=== PATIENT | male | born 1990 | race Caucasian/White ===

== ENCOUNTER 2016-05-21 06:16 | Inpatient (IN) | payer OTHER ==
[~2016-05-21] VITALS: Ht 188 cm; Wt 74.5 kg
[2016-05-21 06:20] VITALS: BP 145/74; PULSE 97; RESP 20; TEMP 97.9; O2SAT 99
[2016-05-21] MEDS ORDERED: KETOROLAC TROMETHAMINE 60 MG/2 ML VIAL IM ONE (07:00)
[2016-05-21] MEDS ORDERED: MORPHINE 4 MG/ML INJ. SYRINGE IM ONE (07:15)
[2016-05-21] MEDS ORDERED: NACL 0.9% 1,000 ML IV ONE ×3 (08:27→13:45)
[2016-05-21] MEDS ORDERED: MORPHINE 2 MG/ML INJ. SYRINGE IVP ONE ×2 (08:30→10:00)
[2016-05-21] MEDS ORDERED: ONDANSETRON HCL 4 MG/2 ML VIAL IVP ONE (08:30)
[2016-05-21 08:58] LABS: BASOPHILS % (AUTO) 0.4 % (0.0-2.0); EOSINOPHILS # (AUTO) 0.1 K/uL (0.0-0.4); EOSINOPHILS % (AUTO) 1.7 % (0.0-4.0); HEMATOCRIT 45.1 % (36-54); HEMOGLOBIN 14.7 g/dL (14.0-18.0); LYMPHOCYTES # (AUTO) 1.2 K/uL (1.0-5.5); LYMPHOCYTES % (AUTO) 14.7 % (20.5-51.5); MEAN CORPUSCULAR HEMOGLOBIN 28 pg (27-31); MEAN CORPUSCULAR HGB CONC 33 % (32-36); MEAN CORPUSCULAR VOLUME 86 fL (79.0-98.0); MONOCYTES # (AUTO) 0.6 K/uL (0.0-1.0); MONOCYTES % (AUTO) 7.6 % (1.7-9.3); NEUTROPHILS # (AUTO) 6.3 K/uL (1.8-7.7); NEUTROPHILS % (AUTO) 75.6 % (40.0-70.0); PLATELET COUNT (AUTO) 234 K/uL (130-430); RED BLOOD CELL COUNT(AUTO) 5.24 MIL/uL (4.2-6.2); RED CELL DISTRIBUTION WIDTH 12.9 % (9.0-15.0); WHITE BLOOD COUNT (AUTO) 8.2 K/uL (4.8-10.8)
[2016-05-21 09:09] LABS: CALCIUM 8.9 mg/dL (8.4-11.0); CREATININE 0.8 mg/dL (0.55-1.30); POTASSIUM 4.3 mmol/L (3.5-5.1)
[2016-05-21 09:13] LABS: ALBUMIN 4.3 g/dL (3.4-4.8); PROTHROMBIN TIME 10.6 SECS (9.5-12.5); TOTAL BILIRUBIN 0.4 mg/dL (0.0-1.0); TOTAL PROTEIN, SERUM 7.6 g/dL (6.4-8.3)
[2016-05-21 10:16] LABS: BILIRUBIN,URINE NEGATIVE (NEGATIVE); BLOOD, URINE NEGATIVE (NEGATIVE); CLARITY/URINE CLEAR (CLEAR); COLOR,URINE YELLOW (YELLOW); GLUCOSE,URINE NEGATIVE (NEGATIVE); KETONES,URINE NEGATIVE (NEGATIVE); LEUKOCYTE ESTERASE ,URINE NEGATIVE (NEGATIVE); NITRITE, URINE NEGATIVE (NEGATIVE); PH,URINE 8.5 (5.0-8.0); PROTEIN URINE NEGATIVE (NEGATIVE); UROBILINOGEN,URINE 0.2 (0.2-1.0)
[2016-05-21] MEDS ORDERED: SER100 PO (10:27)
[2016-05-21] MEDS ORDERED: adderall PO (10:29)
[2016-05-21 10:30] VITALS: BP 136/78; PULSE 70; RESP 18; TEMP 98.6; O2SAT 100
[2016-05-21] MEDS ORDERED: FLU VACC QS 2016-17(36MOS+)/PF 0.5 ML/SYR SYRINGE I.M. PRN (10:45)
[2016-05-21] MEDS ORDERED: HYDROmorphone 1 MG INJ. 1 MG/ML AMPUL IVP PRN ×2 (11:30→13:45)
[2016-05-21] MEDS ORDERED: HYDROmorphone 2 MG/ML VIAL IVP PRN (13:45)
[2016-05-21] MEDS ORDERED: ONDANSETRON HCL 4 MG/2 ML VIAL IVP PRN (13:45)
[2016-05-21] MEDS ORDERED: ACETAMINOPHEN 325 MG TABLET PO PRN (13:45)
[2016-05-21 14:04] LABS: CHOLESTEROL 142 mg/dL (<200); HDL CHOLESTEROL 52 mg/dL (>45); LDL CHOLESTEROL 76 mg/dL (<100); TRIGLYCERIDES 41 mg/dL (30-150)
[2016-05-21 16:00] VITALS: BP 129/67; PULSE 59; RESP 16; TEMP 97.6; O2SAT 98
[2016-05-21] MEDS: D5NS 1,000 ML IV SCH ×2 (16:19→22:34)
[2016-05-21 19:30] VITALS: BP 123/76; PULSE 67; RESP 20; TEMP 97.5; O2SAT 96
[2016-05-21] MEDS ORDERED: TEMAZEPAM 15 MG CAPSULE PO PRN (21:00)
[2016-05-21] MEDS ORDERED: ADDERALL 20 MG PO SCH (21:00)
[2016-05-21] MEDS: ADDERALL 20 MG TAB PO SCH ×2 (21:00→22:31)
[2016-05-21] MEDS: QUEtiapine FUMARATE 100 MG TABLET PO SCH (22:31)
[2016-05-22 01:17] VITALS: BP 132/67; PULSE 69; RESP 16; TEMP 97; O2SAT 98
[2016-05-22 05:07] VITALS: BP 120/57; PULSE 60; RESP 16; TEMP 97.4; O2SAT 96
[2016-05-22 06:47] LABS: BASOPHILS % (AUTO) 0.9 % (0.0-2.0); EOSINOPHILS # (AUTO) 0.2 K/uL (0.0-0.4); EOSINOPHILS % (AUTO) 4.1 % (0.0-4.0); HEMATOCRIT 40.9 % (36-54); HEMOGLOBIN 13.8 g/dL (14.0-18.0); LYMPHOCYTES # (AUTO) 1.6 K/uL (1.0-5.5); LYMPHOCYTES % (AUTO) 38.6 % (20.5-51.5); MEAN CORPUSCULAR HEMOGLOBIN 29 pg (27-31); MEAN CORPUSCULAR HGB CONC 34 % (32-36); MEAN CORPUSCULAR VOLUME 86 fL (79.0-98.0); MONOCYTES # (AUTO) 0.4 K/uL (0.0-1.0); MONOCYTES % (AUTO) 9.5 % (1.7-9.3); NEUTROPHILS % (AUTO) 46.9 % (40.0-70.0); PLATELET COUNT (AUTO) 206 K/uL (130-430); RED BLOOD CELL COUNT(AUTO) 4.77 MIL/uL (4.2-6.2); RED CELL DISTRIBUTION WIDTH 13.4 % (9.0-15.0); WHITE BLOOD COUNT (AUTO) 4.2 K/uL (4.8-10.8)
[2016-05-22 07:02] LABS: CALCIUM 8.7 mg/dL (8.4-11.0); CREATININE 0.64 mg/dL (0.55-1.30); POTASSIUM 3.8 mmol/L (3.5-5.1); TOTAL BILIRUBIN 0.3 mg/dL (0.0-1.0)
[2016-05-22 07:03] LABS: ALBUMIN 3.7 g/dL (3.4-4.8); TOTAL PROTEIN, SERUM 6.9 g/dL (6.4-8.3)
[2016-05-22] MEDS: ADDERALL 20 MG TAB PO SCH ×2 (09:00→21:00)
[2016-05-22 09:32] VITALS: BP 126/64; PULSE 72; RESP 18; TEMP 98.2; O2SAT 97
[2016-05-22 15:46] VITALS: BP 138/67; PULSE 73; RESP 19; TEMP 99.1; O2SAT 100
[2016-05-22 19:37] VITALS: BP 130/64; PULSE 78; RESP 20; TEMP 98.8; O2SAT 98
[2016-05-22 20:31] VITALS: BP 133/81; PULSE 60; RESP 16; TEMP 98.1; O2SAT 98
[2016-05-22] MEDS: QUEtiapine FUMARATE 100 MG TABLET PO SCH (21:18)
[2016-05-23 01:03] VITALS: BP 127/56; PULSE 62; RESP 16; TEMP 96.7; O2SAT 97
[2016-05-23 05:43] VITALS: BP 117/64; PULSE 61; RESP 16; TEMP 97; O2SAT 93
[2016-05-23] MEDS: ADDERALL 20 MG TAB PO SCH (09:40)
[2016-05-23 09:45] VITALS: BP 138/86; PULSE 79; RESP 20; TEMP 98.4; O2SAT 98
[2016-05-23 12:09] VITALS: BP 135/73; PULSE 72; RESP 17; TEMP 97.9; O2SAT 99
[2016-05-23 12:15] VITALS: BP 135/73; PULSE 72; RESP 18; TEMP 97.9; O2SAT 99
== END 2016-05-23 12:45 | disposition home or self-care (01) | DRG 440 ==
LOC: SED 06:16 → SMU 10:03
PROVIDERS: ADMIT Internal Medicine Hospice and Palliative Medicine; ATTEND Internal Medicine Hospice and Palliative Medicine
DX: K85.90 Acute pancreatitis without necrosis or infection, unspecified (principal); F12.90 Cannabis use, unspecified, uncomplicated; F90.9 Attention-deficit hyperactivity disorder, unspecified type; K21.9 Gastro-esophageal reflux disease without esophagitis; F41.9 Anxiety disorder, unspecified; F17.210 Nicotine dependence, cigarettes, uncomplicated; F98.8 Other specified behavioral and emotional disorders with onset usually occurring in childhood and adolescence
CPT/HCPCS: 36415; 76700-TC; 80053; 80061; 81003; 82150-TC; 82787; 83690-TC; 85025; 85610-TC; 85730-TC; 86038; 96361; 96372; 96374; 96375; 96376; 99285; J1170; J1885; J2270; J2405; J7030; J7042; Q2037

== ENCOUNTER 2016-11-02 11:09 | Emergency (ER) | payer OTHER ==
[~2016-11-02] VITALS: Ht 188 cm; Wt 72.6 kg
[~2016-11-02 11:09] MED LIST: SER100 PO; adderall PO
[2016-11-02 11:14] VITALS: BP_SYST 151
--- NOTE | 2016-11-02 11:19 | NUR ---
Patient to ER bed 3 to gown for evaluation. Side rails up. Report given to Helen MCKINNON.
--- NOTE | 2016-11-02 11:20 | NUR ---
ER at bedside examining patient.
[2016-11-02] MEDS ORDERED: NACL 0.9% 1,000 ML IV ONE (11:27)
[2016-11-02] MEDS ORDERED: KETOROLAC TROMETHAMINE 30 MG VIAL IVP ONE (11:30)
--- NOTE | 2016-11-02 11:30 | NUR ---
# 20 gauge angiocath placed to LAC. Use of asceptic technique. Opsite placed over site. Blood return noted. Blood for lab drawn from site. Flushed with 10 cc of normal saline. No evidence of infiltration noted. Patient tolerated well.
[2016-11-02 11:39] LABS: BASOPHILS # (AUTO) 0.1 K/uL (0.0-0.2); BASOPHILS % (AUTO) 1.5 % (0.0-2.0); EOSINOPHILS # (AUTO) 0.3 K/uL (0.0-0.4); EOSINOPHILS % (AUTO) 3.9 % (0.0-4.0); HEMATOCRIT 48.9 % (36-54); HEMOGLOBIN 16.1 g/dL (14.0-18.0); LYMPHOCYTES % (AUTO) 31.4 % (20.5-51.5); MEAN CORPUSCULAR HEMOGLOBIN 28 pg (27-31); MEAN CORPUSCULAR HGB CONC 33 % (32-36); MEAN CORPUSCULAR VOLUME 87 fL (79.0-98.0); MONOCYTES # (AUTO) 0.5 K/uL (0.0-1.0); MONOCYTES % (AUTO) 7.1 % (1.7-9.3); NEUTROPHILS # (AUTO) 3.5 K/uL (1.8-7.7); NEUTROPHILS % (AUTO) 56.1 % (40.0-70.0); PLATELET COUNT (AUTO) 255 K/uL (130-430); RED BLOOD CELL COUNT(AUTO) 5.66 MIL/uL (4.2-6.2); RED CELL DISTRIBUTION WIDTH 12.8 % (9.0-15.0); WHITE BLOOD COUNT (AUTO) 6.4 K/uL (4.8-10.8)
--- NOTE | 2016-11-02 11:45 | NUR ---
Pt on stable condition, resting at this time, family at bedside
[2016-11-02 11:51] LABS: BARBITURATE, URINE NEGATIVE (NEG <=200); BENZODIAZEPINE, URINE NEGATIVE (NEG <=150); CANNABINOID, URINE POSITIVE (NEG <=50); COCAINE, URINE NEGATIVE (NEG <=150); METHAMPHETAMINES SCREEN,URINE NEGATIVE (NEG <=500); OPIATE, URINE NEGATIVE (NEG <=100); PHENCYCLIDINE SCREEN,URINE NEGATIVE (NEG <=25); UR TRICYCLIC ANTIDEPRESSANTS POSITIVE (NEG <=300); URINE AMPHETAMINE POSITIVE (NEG <=500); URINE METHADONE NEGATIVE (NEG <=200); URINE OXYCODONE SCREEN NEGATIVE (NEG <=100); URINE PROPOXYPHENE SCREEN NEGATIVE (NEG <=300)
[2016-11-02 11:53] LABS: CALCIUM 8.9 mg/dL (8.4-11.0); CREATININE 0.77 mg/dL (0.55-1.30); POTASSIUM 4.3 mmol/L (3.5-5.1)
[2016-11-02 11:57] LABS: ALBUMIN 4.4 g/dL (3.4-4.8); TOTAL BILIRUBIN 0.3 mg/dL (0.0-1.0); TOTAL PROTEIN, SERUM 7.7 g/dL (6.4-8.3)
[2016-11-02] MEDS ORDERED: DIPHENHYDRAMINE INJ 50 MG/ML VIAL IVP ONE (12:45)
[2016-11-02] MEDS ORDERED: HALOPERIDOL LACTATE 5 MG/ML VIAL IVP ONE (12:45)
--- NOTE | 2016-11-02 12:48 | NUR ---
Placed on director cardiac, blood pressure machine and pulse oximeter. To gown for exam. Side rails up.
--- NOTE | 2016-11-02 13:11 | NUR ---
Dr Osborn at bedside talking to the patient.
[2016-11-02] MEDS ORDERED: PROCHLORPERAZINE EDISYLATE 10 MG/2 ML VIAL IVP ONE (13:15)
[2016-11-02] MEDS ORDERED: fentaNYL CITRATE/PF 100 MCG/2 ML AMP IVP ONE (13:15)
--- NOTE | 2016-11-02 13:48 | NUR ---
Patient given written and verbal discharge instructions and verbalizes understanding. ER MD discussed with patient the results and treatment provided. Patient in stable condition. ID arm band removed. IV catheter removed intact and dressing applied, no active bleeding. Rx of zofran and tramadol given. Patient educated on pain management and to follow up with PMD. Pain Scale 0/10 . Opportunity for questions provided and answered. pt refused to use wheelchair,insisit to walk with his friend to the car
[2016-11-02 13:51] VITALS: BP_SYST 131
== END 2016-11-02 13:48 | disposition home or self-care (01) ==
LOC: SED 11:09
DX: R10.13 Epigastric pain (principal); K21.9 Gastro-esophageal reflux disease without esophagitis; Z79.899 Other long term (current) drug therapy
CPT/HCPCS: 36415; 80053; 80307; 83690; 85025; 96361; 96374; 96375; 99285; J0780; J1200; J1630; J1885; J3010

== ENCOUNTER 2017-07-22 09:41 | Emergency (ER) | payer OTHER ==
[~2017-07-22] VITALS: Ht 188 cm; Wt 79.4 kg
[2017-07-22 10:08] VITALS: BP_SYST 145
[2017-07-22 11:44] LABS: BASOPHILS # (AUTO) 0.1 K/uL (0.0-0.2); BASOPHILS % (AUTO) 1.2 % (0.0-2.0); EOSINOPHILS # (AUTO) 0.1 K/uL (0.0-0.4); EOSINOPHILS % (AUTO) 1.2 % (0.0-4.0); HEMATOCRIT 44.9 % (36-54); HEMOGLOBIN 14.9 g/dL (14.0-18.0); LYMPHOCYTES # (AUTO) 1.9 K/uL (1.0-5.5); LYMPHOCYTES % (AUTO) 22.2 % (20.5-51.5); MEAN CORPUSCULAR HEMOGLOBIN 29 pg (27-31); MEAN CORPUSCULAR HGB CONC 33 % (32-36); MEAN CORPUSCULAR VOLUME 87 fL (79.0-98.0); MONOCYTES # (AUTO) 0.7 K/uL (0.0-1.0); MONOCYTES % (AUTO) 8.7 % (1.7-9.3); NEUTROPHILS # (AUTO) 5.8 K/uL (1.8-7.7); NEUTROPHILS % (AUTO) 66.7 % (40.0-70.0); PLATELET COUNT (AUTO) 286 K/uL (130-430); RED BLOOD CELL COUNT(AUTO) 5.17 MIL/uL (4.2-6.2); RED CELL DISTRIBUTION WIDTH 12.7 % (9.0-15.0); WHITE BLOOD COUNT (AUTO) 8.6 K/uL (4.8-10.8)
[2017-07-22 11:54] LABS: ANION GAP 11 (5-15); CALCIUM 9.7 mg/dL (8.4-11.0); CHLORIDE 102 mmol/L (98-107); CREATININE 0.72 mg/dL (0.55-1.30); GLUCOSE 103 mg/dL (70-99); POTASSIUM 3.5 mmol/L (3.5-5.1); SODIUM SERUM 140 mmol/L (136-145); UREA NITROGEN, BLOOD 14 mg/dL (8-21)
[2017-07-22 11:57] LABS: GFR AFRICAN AMERICAN 171 mL/min (>90)
[2017-07-22 12:00] LABS: ALANINE AMINOTRANSFERASE 21 U/L (12-78); ALBUMIN 4.6 g/dL (3.4-4.8); ASPARTATE AMINOTRANSFERASE 18 U/L (10-37); TOTAL BILIRUBIN 0.8 mg/dL (0.0-1.0)
[2017-07-22 12:01] LABS: ACETAMINOPHEN < 1 ug/mL (1-30); ALCOHOL, BLOOD < 3 mg/dL (<10)
[2017-07-22 14:52] VITALS: BP_SYST 136
== END 2017-07-22 14:52 | disposition home or self-care (01) ==
LOC: EDBD 09:41 → MERGE 09:41 → SED 09:41
DX: M79.641 Pain in right hand (principal); M79.642 Pain in left hand; F41.9 Anxiety disorder, unspecified; R03.0 Elevated blood-pressure reading, without diagnosis of hypertension; Z86.59 Personal history of other mental and behavioral disorders; Y08.89XA Assault by other specified means, initial encounter; Y93.89 Activity, other specified; Y92.89 Other specified places as the place of occurrence of the external cause; Y99.8 Other external cause status
CPT/HCPCS: 36415; 80053; 85025; 93005; 99285; G0480; G0481; G0482

== ENCOUNTER 2017-12-23 14:23 | Emergency (ER) | payer OTHER ==
[~2017-12-23] VITALS: Ht 188 cm; Wt 72.6 kg
[2017-12-23 14:37] VITALS: BP_SYST 141
[2017-12-23] MEDS ORDERED: LIDOCAINE 2%, 20 ML MDV INJ ONE (15:00)
[2017-12-23] MEDS ORDERED: IBUPROFEN 800 MG TABLET PO ONE (15:00)
[2017-12-23] MEDS ORDERED: DIPH-TET-PERTUS Vaccine 0.5 ML VIAL (ADACEL) I.M. ONE (15:00)
[2017-12-23] MEDS ORDERED: LIDOCAINE 1% 10 MG/ML, 20 ML MDV IJ ONE (15:15)
[2017-12-23] MEDS ORDERED: HYDROcodone/ACETAMIN 7.5-325 MG TAB PO ONE (15:15)
[2017-12-23] MEDS ORDERED: LORazepam 2 MG/ML VIAL (FOR ER USE) IM ONE (15:15)
[2017-12-23] MEDS ORDERED: fentaNYL CITRATE/PF 100 MCG/2 ML AMP IM ONE (15:30)
[2017-12-23] MEDS ORDERED: CLINDAMYCIN PHOSPHATE 300 MG/2 ML VIAL IM ONE (16:30)
[2017-12-23 16:58] VITALS: BP_SYST 139
== END 2017-12-23 16:58 | disposition home or self-care (01) ==
LOC: SED 14:23
DX: S56.321A Laceration of extensor or abductor muscles, fascia and tendons of right thumb at forearm level, initial encounter (principal); K21.9 Gastro-esophageal reflux disease without esophagitis; R03.0 Elevated blood-pressure reading, without diagnosis of hypertension; F41.9 Anxiety disorder, unspecified; F90.9 Attention-deficit hyperactivity disorder, unspecified type; W26.8XXA Contact with other sharp object(s), not elsewhere classified, initial encounter; Y93.89 Activity, other specified; Y92.89 Other specified places as the place of occurrence of the external cause; Y99.8 Other external cause status
CPT/HCPCS: 12001; 73140; 90471; 90715; 96372; 99284; J2001; J2060; J3010; J3490

== ENCOUNTER 2018-02-05 13:25 | Inpatient (IN) | payer OTHER ==
[~2018-02-05] VITALS: Ht 193 cm; Wt 74.8 kg
[2018-02-05 13:41] VITALS: BP_SYST 155
[2018-02-05] MEDS ORDERED: MORPHINE 4 MG/ML INJ. SYRINGE IVP ONE (14:00)
[2018-02-05] MEDS ORDERED: ONDANSETRON HCL 4 MG/2 ML VIAL IVP ONE (14:00)
[2018-02-05] MEDS ORDERED: DIPHENHYDRAMINE INJ 50 MG/ML VIAL IVP ONE (14:15)
[2018-02-05] MEDS ORDERED: HALOPERIDOL LACTATE 5 MG/ML VIAL IVP ONE (14:15)
[2018-02-05] MEDS ORDERED: KETOROLAC TROMETHAMINE 30 MG VIAL IVP ONE (14:15)
[2018-02-05 14:32] LABS: BASOPHILS # (AUTO) 0.1 K/uL (0.0-0.2); EOSINOPHILS # (AUTO) 0.1 K/uL (0.0-0.4); EOSINOPHILS % (AUTO) 0.7 % (0.0-4.0); HEMATOCRIT 46.2 % (36-54); LYMPHOCYTES # (AUTO) 1.4 K/uL (1.0-5.5); LYMPHOCYTES % (AUTO) 12.2 % (20.5-51.5); MEAN CORPUSCULAR HEMOGLOBIN 29 pg (27-31); MEAN CORPUSCULAR HGB CONC 33 % (32-36); MEAN CORPUSCULAR VOLUME 88 fL (79.0-98.0); MONOCYTES # (AUTO) 0.6 K/uL (0.0-1.0); MONOCYTES % (AUTO) 5.2 % (1.7-9.3); NEUTROPHILS # (AUTO) 9.2 K/uL (1.8-7.7); NEUTROPHILS % (AUTO) 80.9 % (40.0-70.0); PLATELET COUNT (AUTO) 299 K/uL (130-430); RED BLOOD CELL COUNT(AUTO) 5.25 MIL/uL (4.2-6.2); RED CELL DISTRIBUTION WIDTH 12.8 % (9.0-15.0); WHITE BLOOD COUNT (AUTO) 11.4 K/uL (4.8-10.8)
[2018-02-05 14:59] LABS: CREATININE 1.02 mg/dL (0.55-1.30); POTASSIUM 3.9 mmol/L (3.5-5.1)
[2018-02-05 15:04] LABS: ALBUMIN 4.5 g/dL (3.4-4.8); TOTAL BILIRUBIN 0.5 mg/dL (0.0-1.0)
[2018-02-05 15:11] LABS: BILIRUBIN,URINE NEGATIVE (NEGATIVE); BLOOD, URINE 3+ (NEGATIVE); CLARITY/URINE CLEAR (CLEAR); COLOR,URINE YELLOW (YELLOW); GLUCOSE,URINE NEGATIVE (NEGATIVE); KETONES,URINE NEGATIVE (NEGATIVE); LEUKOCYTE ESTERASE ,URINE NEGATIVE (NEGATIVE); NITRITE, URINE NEGATIVE (NEGATIVE); PROTEIN URINE NEGATIVE (NEGATIVE); UROBILINOGEN,URINE 0.2 (0.2-1.0)
[2018-02-05] MEDS ORDERED: NACL 0.9% 1,000 ML IV ONE ×2 (15:15→15:45)
[2018-02-05 15:30] LABS: BARBITURATE, URINE NEGATIVE (NEG <=200); BENZODIAZEPINE, URINE POSITIVE (NEG <=150); CANNABINOID, URINE POSITIVE (NEG <=50); COCAINE, URINE NEGATIVE (NEG <=150); METHAMPHETAMINES SCREEN,URINE NEGATIVE (NEG <=500); URINE AMPHETAMINE NEGATIVE (NEG <=500); URINE METHADONE NEGATIVE (NEG <=200)
[2018-02-05 15:31] LABS: PHENCYCLIDINE SCREEN,URINE NEGATIVE (NEG <=25)
[2018-02-05 15:32] LABS: OPIATE, URINE POSITIVE (NEG <=100); URINE OXYCODONE SCREEN NEGATIVE (NEG <=100); URINE PROPOXYPHENE SCREEN NEGATIVE (NEG <=300)
[2018-02-05 15:33] LABS: UR TRICYCLIC ANTIDEPRESSANTS NEGATIVE (NEG <=300)
[2018-02-05 15:36] LABS: BACTERIA,URINE FEW /HPF (None Seen); RBC,URINE 20-50 /HPF (0-3)
[2018-02-05 15:37] LABS: MUCUS,URINE 1+ /LPF (None Seen)
[2018-02-05] MEDS ORDERED: NACL 0.9% 500 ML IV ONE (15:45)
[2018-02-05] MEDS ORDERED: cefTRIAXone 1 GM in D5W 50 ML IV ONE (15:45)
[2018-02-05] MEDS ORDERED: cefTRIAXone 1 GM VIAL ONE (15:59)
[2018-02-05] MEDS ORDERED: D-AM10TA2 PO (16:15)
[2018-02-05] MEDS ORDERED: LORA2TAB95 PO (16:15)
[2018-02-05] MEDS ORDERED: SER100 PO (16:15)
[2018-02-05] MEDS ORDERED: TRAZ300T11 PO (16:15)
[2018-02-05] MEDS ORDERED: LORazepam 2 MG/ML VIAL IVP PRN (16:45)
[2018-02-05] MEDS ORDERED: METOCLOPRAMIDE HCL 10 MG TABLET PO PRN (16:45)
[2018-02-05] MEDS ORDERED: HYDROcodone/ACETAMIN 7.5-325 MG TAB PO PRN (16:45)
[2018-02-05] MEDS ORDERED: KETOROLAC TROMETHAMINE 15 MG VIAL IVP PRN (16:45)
[2018-02-05] MEDS ORDERED: traZODone HCL 50 MG TABLET (DESYREL) PO PRN (17:00)
[2018-02-05 17:20] VITALS: BP_SYST 147
[2018-02-05] MEDS: NACL 0.9% 1,000 ML IV SCH (18:12)
[2018-02-05 20:00] VITALS: BP_SYST 130
[2018-02-05] MEDS ORDERED: QUEtiapine FUMARATE 100 MG TABLET PO SCH ×3 (21:00)
[2018-02-05 23:30] VITALS: BP_SYST 123
[2018-02-06] MEDS: NACL 0.9% 1,000 ML IV SCH (03:15)
[2018-02-06 06:15] LABS: HEMATOCRIT 40.4 % (36-54); HEMOGLOBIN 13.5 g/dL (14.0-18.0); MEAN CORPUSCULAR HEMOGLOBIN 30 pg (27-31); MEAN CORPUSCULAR HGB CONC 33 % (32-36); MEAN CORPUSCULAR VOLUME 89 fL (79.0-98.0); PLATELET COUNT (AUTO) 228 K/uL (130-430); RED BLOOD CELL COUNT(AUTO) 4.55 MIL/uL (4.2-6.2); RED CELL DISTRIBUTION WIDTH 12.3 % (9.0-15.0); WHITE BLOOD COUNT (AUTO) 8.1 K/uL (4.8-10.8)
[2018-02-06 06:38] LABS: CALCIUM 8.9 mg/dL (8.4-11.0); CREATININE 0.78 mg/dL (0.55-1.30); POTASSIUM 3.6 mmol/L (3.5-5.1)
[2018-02-06 08:20] VITALS: BP_SYST 144
[2018-02-06] MEDS ORDERED: TAMSULOSIN HCL 0.4 MG CAP PO SCH (09:00)
[2018-02-06] MEDS ORDERED: LACTOBACILLUS RHAMNOSUS GG 1 CAP CAPSULE PO SCH (09:00)
[2018-02-06] MEDS ORDERED: TAMS0.4C96 PO (09:38)
[2018-02-06 09:46] VITALS: BP_SYST 144
[2018-02-06 10:56] LABS: LYMPHOCYTES % (MANUAL) 37 % (20-46)
[2018-02-06 10:57] LABS: BASOPHILS % (MANUAL) 0 % (0-2); EOSINOPHILS % (MANUAL) 1 % (0-7); MONOCYTES % (MANUAL) 10 % (0-11)
[2018-02-06] MEDS ORDERED: cefTRIAXone 1 GM IVPB PREMIX 50 ML IV SCH (16:00)
== END 2018-02-06 10:00 | disposition home or self-care (01) | DRG 871 ==
LOC: SED 13:25 → STU 16:32
PROVIDERS: ADMIT Family Medicine; ATTEND Family Medicine
DX: A41.9 Sepsis, unspecified organism (principal); K85.90 Acute pancreatitis without necrosis or infection, unspecified; N13.6 Pyonephrosis; K21.9 Gastro-esophageal reflux disease without esophagitis; F90.9 Attention-deficit hyperactivity disorder, unspecified type; F41.9 Anxiety disorder, unspecified; G47.00 Insomnia, unspecified; R11.10 Vomiting, unspecified; F12.988 Cannabis use, unspecified with other cannabis-induced disorder; Z79.899 Other long term (current) drug therapy
CPT/HCPCS: 36415; 80048; 80053; 80307; 81000-TC; 83605; 83690-TC; 83735-TC; 84100-TC; 85007; 85025; 85027; 87040-TC; 90656; 96361; 96365; 96375; 99285; J0696; J1200; J1630; J1885; J2060; J2270; J2405; J7030

== ENCOUNTER 2018-02-07 18:39 | Emergency (ER) | payer OTHER ==
[~2018-02-07] VITALS: Ht 188 cm; Wt 74.8 kg
[~2018-02-07 18:39] MED LIST changes: +D-AM10TA2 PO; +LORA2TAB95 PO; +TAMS0.4C96 PO; +TRAZ300T11 PO
[2018-02-07 18:50] VITALS: BP_SYST 150
[2018-02-07] MEDS ORDERED: ONDANSETRON HCL 4 MG/2 ML VIAL ONE (19:39)
[2018-02-07] MEDS ORDERED: KETOROLAC TROMETHAMINE 30 MG VIAL ONE (19:39)
[2018-02-07] MEDS ORDERED: KETOROLAC TROMETHAMINE 30 MG VIAL IVP ONE (19:45)
[2018-02-07] MEDS ORDERED: ONDANSETRON HCL 4 MG/2 ML VIAL IVP ONE (19:45)
[2018-02-07 19:54] LABS: BASOPHILS # (AUTO) 0.2 K/uL (0.0-0.2); BASOPHILS % (AUTO) 1.9 % (0.0-2.0); EOSINOPHILS # (AUTO) 0.1 K/uL (0.0-0.4); EOSINOPHILS % (AUTO) 1.1 % (0.0-4.0); HEMATOCRIT 44.1 % (36-54); HEMOGLOBIN 14.4 g/dL (14.0-18.0); LYMPHOCYTES % (AUTO) 20.8 % (20.5-51.5); MEAN CORPUSCULAR HEMOGLOBIN 29 pg (27-31); MEAN CORPUSCULAR HGB CONC 33 % (32-36); MEAN CORPUSCULAR VOLUME 88 fL (79.0-98.0); MONOCYTES # (AUTO) 0.6 K/uL (0.0-1.0); MONOCYTES % (AUTO) 5.7 % (1.7-9.3); NEUTROPHILS # (AUTO) 6.8 K/uL (1.8-7.7); NEUTROPHILS % (AUTO) 70.5 % (40.0-70.0); PLATELET COUNT (AUTO) 305 K/uL (130-430); RED BLOOD CELL COUNT(AUTO) 5.02 MIL/uL (4.2-6.2); RED CELL DISTRIBUTION WIDTH 12.5 % (9.0-15.0); WHITE BLOOD COUNT (AUTO) 9.7 K/uL (4.8-10.8)
[2018-02-07 20:05] LABS: CALCIUM 9.9 mg/dL (8.4-11.0); CREATININE 0.97 mg/dL (0.55-1.30); POTASSIUM 3.3 mmol/L (3.5-5.1)
[2018-02-07 20:10] LABS: ALBUMIN 4.7 g/dL (3.4-4.8); TOTAL BILIRUBIN 0.5 mg/dL (0.0-1.0)
[2018-02-07] MEDS ORDERED: fentaNYL CITRATE/PF 100 MCG/2 ML AMP IVP ONE (21:15)
[2018-02-07 21:45] VITALS: BP_SYST 122
== END 2018-02-07 21:50 | disposition home or self-care (01) ==
LOC: SED 18:39
DX: N20.0 Calculus of kidney (principal); K21.9 Gastro-esophageal reflux disease without esophagitis; F90.9 Attention-deficit hyperactivity disorder, unspecified type; F41.9 Anxiety disorder, unspecified; R03.0 Elevated blood-pressure reading, without diagnosis of hypertension; Z79.899 Other long term (current) drug therapy
CPT/HCPCS: 36415; 80053; 85025; 96374; 96375; 99285; J1885; J2405; J3010

== ENCOUNTER 2018-02-08 00:27 | Emergency (ER) | payer OTHER ==
[~2018-02-08] VITALS: Ht 188 cm; Wt 81.6 kg
[2018-02-08 00:47] VITALS: BP_SYST 151
[2018-02-08] MEDS ORDERED: NACL 0.9% 1,000 ML IV ONE (01:01)
[2018-02-08] MEDS ORDERED: MORPHINE 4 MG/ML INJ. SYRINGE IVP ONE (01:15)
[2018-02-08 01:20] LABS: BASOPHILS # (AUTO) 0.2 K/uL (0.0-0.2); BASOPHILS % (AUTO) 1.8 % (0.0-2.0); EOSINOPHILS % (AUTO) 0.4 % (0.0-4.0); HEMOGLOBIN 14.4 g/dL (14.0-18.0); LYMPHOCYTES # (AUTO) 1.2 K/uL (1.0-5.5); LYMPHOCYTES % (AUTO) 10.2 % (20.5-51.5); MEAN CORPUSCULAR HEMOGLOBIN 29 pg (27-31); MEAN CORPUSCULAR HGB CONC 33 % (32-36); MEAN CORPUSCULAR VOLUME 88 fL (79.0-98.0); MONOCYTES # (AUTO) 0.8 K/uL (0.0-1.0); MONOCYTES % (AUTO) 7.3 % (1.7-9.3); NEUTROPHILS # (AUTO) 9.2 K/uL (1.8-7.7); NEUTROPHILS % (AUTO) 80.3 % (40.0-70.0); PLATELET COUNT (AUTO) 271 K/uL (130-430); RED BLOOD CELL COUNT(AUTO) 4.98 MIL/uL (4.2-6.2); RED CELL DISTRIBUTION WIDTH 12.5 % (9.0-15.0); WHITE BLOOD COUNT (AUTO) 11.4 K/uL (4.8-10.8)
[2018-02-08 01:22] LABS: CALCIUM 9.4 mg/dL (8.4-11.0); CREATININE 1.13 mg/dL (0.55-1.30); POTASSIUM 3.8 mmol/L (3.5-5.1)
[2018-02-08] MEDS ORDERED: ONDANSETRON HCL 4 MG/2 ML VIAL IVP ONE (01:30)
[2018-02-08 01:34] LABS: ALBUMIN 4.2 g/dL (3.4-4.8); TOTAL BILIRUBIN 0.4 mg/dL (0.0-1.0)
[2018-02-08] MEDS ORDERED: fentaNYL CITRATE/PF 100 MCG/2 ML AMP IVP ONE (02:45)
[2018-02-08 03:34] VITALS: BP_SYST 115
== END 2018-02-08 03:33 | disposition home or self-care (01) ==
LOC: SED 00:27
DX: R11.10 Vomiting, unspecified (principal); K21.9 Gastro-esophageal reflux disease without esophagitis; F41.9 Anxiety disorder, unspecified; R03.0 Elevated blood-pressure reading, without diagnosis of hypertension; F90.9 Attention-deficit hyperactivity disorder, unspecified type; Z79.899 Other long term (current) drug therapy
CPT/HCPCS: 36415; 80053; 83690; 85025; 96361; 96374; 96375; 99284; J2270; J2405; J3010

== ENCOUNTER 2018-05-11 23:53 | Emergency (ER) | payer OTHER ==
[~2018-05-11] VITALS: Ht 185.4 cm; Wt 79.4 kg
[2018-05-12 00:02] VITALS: BP_SYST 152
[2018-05-12] MEDS ORDERED: PREDNISONE 20 MG TABLET PO ONE (01:15)
[2018-05-12 01:30] VITALS: BP_SYST 142
== END 2018-05-12 01:30 | disposition home or self-care (01) ==
LOC: SED 23:53
DX: T78.40XA Allergy, unspecified, initial encounter (principal); K21.9 Gastro-esophageal reflux disease without esophagitis; F41.9 Anxiety disorder, unspecified; F90.9 Attention-deficit hyperactivity disorder, unspecified type; R03.0 Elevated blood-pressure reading, without diagnosis of hypertension; Z79.899 Other long term (current) drug therapy; X58.XXXA Exposure to other specified factors, initial encounter
CPT/HCPCS: 99283; J7512

== ENCOUNTER 2018-06-21 22:13 | Emergency (ER) | payer OTHER ==
[~2018-06-21] VITALS: Ht 188 cm; Wt 78.0 kg
[2018-06-21 22:15] VITALS: BP_SYST 116
[2018-06-21] MEDS ORDERED: HYDROcodone/ACETAMIN 5-325 MG TAB (NORCO/ VICODIN) PO ONE (22:45)
[2018-06-21 22:58] LABS: BILIRUBIN,URINE NEGATIVE (NEGATIVE); BLOOD, URINE NEGATIVE (NEGATIVE); CLARITY/URINE CLEAR (CLEAR); COLOR,URINE YELLOW (YELLOW); GLUCOSE,URINE NEGATIVE (NEGATIVE); KETONES,URINE NEGATIVE (NEGATIVE); LEUKOCYTE ESTERASE ,URINE NEGATIVE (NEGATIVE); NITRITE, URINE NEGATIVE (NEGATIVE); PROTEIN URINE NEGATIVE (NEGATIVE); UROBILINOGEN,URINE 0.2 (0.2-1.0)
[2018-06-22 00:15] VITALS: BP_SYST 116
== END 2018-06-22 00:15 | disposition home or self-care (01) ==
LOC: SED 22:13
DX: S39.012A Strain of muscle, fascia and tendon of lower back, initial encounter (principal); K21.9 Gastro-esophageal reflux disease without esophagitis; F41.9 Anxiety disorder, unspecified; F90.9 Attention-deficit hyperactivity disorder, unspecified type; Z79.899 Other long term (current) drug therapy; X58.XXXA Exposure to other specified factors, initial encounter; Y93.89 Activity, other specified; Y92.89 Other specified places as the place of occurrence of the external cause; Y99.8 Other external cause status
CPT/HCPCS: 81003; 99284

== ENCOUNTER 2018-08-14 07:52 | Emergency (ER) | payer OTHER ==
[~2018-08-14] VITALS: Ht 188 cm; Wt 77.1 kg
[2018-08-14 08:00] VITALS: BP_SYST 136
[2018-08-14] MEDS ORDERED: NACL 0.9% 1,000 ML IV ONE (08:30)
[2018-08-14 09:24] LABS: BASOPHILS # (AUTO) 0.1 K/uL (0.0-0.2); BASOPHILS % (AUTO) 0.8 % (0.0-2.0); EOSINOPHILS # (AUTO) 0.1 K/uL (0.0-0.4); EOSINOPHILS % (AUTO) 0.7 % (0.0-4.0); HEMATOCRIT 45.2 % (36-54); LYMPHOCYTES # (AUTO) 1.2 K/uL (1.0-5.5); LYMPHOCYTES % (AUTO) 13.9 % (20.5-51.5); MEAN CORPUSCULAR HEMOGLOBIN 29 pg (27-31); MEAN CORPUSCULAR HGB CONC 33 % (32-36); MEAN CORPUSCULAR VOLUME 86 fL (79.0-98.0); MONOCYTES # (AUTO) 0.4 K/uL (0.0-1.0); MONOCYTES % (AUTO) 5.1 % (1.7-9.3); NEUTROPHILS # (AUTO) 6.8 K/uL (1.8-7.7); NEUTROPHILS % (AUTO) 79.5 % (40.0-70.0); PLATELET COUNT (AUTO) 301 K/uL (130-430); RED BLOOD CELL COUNT(AUTO) 5.25 MIL/uL (4.2-6.2); RED CELL DISTRIBUTION WIDTH 13.8 % (9.0-15.0); WHITE BLOOD COUNT (AUTO) 8.6 K/uL (4.8-10.8)
[2018-08-14 09:37] LABS: ANION GAP 9 (5-15); CALCIUM 9.8 mg/dL (8.4-11.0); CHLORIDE 103 mmol/L (98-107); CREATININE 0.82 mg/dL (0.55-1.30); GFR AFRICAN AMERICAN 146 mL/min (>90); GLUCOSE 93 mg/dL (70-99); POTASSIUM 4.1 mmol/L (3.5-5.1); SODIUM SERUM 137 mmol/L (136-145); UREA NITROGEN, BLOOD 8 mg/dL (8-21)
[2018-08-14 09:41] LABS: ALANINE AMINOTRANSFERASE 26 U/L (12-78); ALBUMIN 4.4 g/dL (3.4-4.8); ASPARTATE AMINOTRANSFERASE 13 U/L (10-37); LIPASE 112 U/L (73-393); TOTAL BILIRUBIN 0.6 mg/dL (0.0-1.0)
[2018-08-14 09:44] LABS: ALCOHOL, BLOOD < 3 mg/dL (<10)
[2018-08-14 09:55] LABS: ACETAMINOPHEN < 1 ug/mL (1-30)
[2018-08-14] MEDS ORDERED: ONDANSETRON HCL 4 MG/2 ML VIAL IVP ONE (10:00)
[2018-08-14 10:26] LABS: BARBITURATE, URINE NEGATIVE (NEG <=200); BENZODIAZEPINE, URINE POSITIVE (NEG <=150); CANNABINOID, URINE POSITIVE (NEG <=50); COCAINE, URINE NEGATIVE (NEG <=150); METHAMPHETAMINES SCREEN,URINE NEGATIVE (NEG <=500); OPIATE, URINE NEGATIVE (NEG <=100); PHENCYCLIDINE SCREEN,URINE NEGATIVE (NEG <=25); UR TRICYCLIC ANTIDEPRESSANTS NEGATIVE (NEG <=300); URINE AMPHETAMINE NEGATIVE (NEG <=500); URINE METHADONE NEGATIVE (NEG <=200); URINE OXYCODONE SCREEN NEGATIVE (NEG <=100); URINE PROPOXYPHENE SCREEN NEGATIVE (NEG <=300)
[2018-08-14 10:56] VITALS: BP_SYST 136
== END 2018-08-14 10:17 | disposition home or self-care (01) ==
LOC: SED 07:52
DX: G47.00 Insomnia, unspecified (principal); R11.0 Nausea; K21.9 Gastro-esophageal reflux disease without esophagitis; F90.8 Attention-deficit hyperactivity disorder, other type; F41.9 Anxiety disorder, unspecified; Z79.899 Other long term (current) drug therapy
CPT/HCPCS: 36415; 74021; 80053; 80307; 83690; 85025; 96361; 96374; 99284; G0480; G0481; G0482; J2405; J7030

== ENCOUNTER 2022-02-05 16:43 | Emergency (ER) | payer OTHER ==
[~2022-02-05] VITALS: Ht 188 cm; Wt 82.6 kg
[2022-02-05 16:55] VITALS: BP_SYST 151
--- NOTE | 2022-02-05 16:55 | NUR ---
Patient triaged and placed in waiting room. VSS and patient appears in no acute distress at this time. Accompanied by SELF, awaiting available bed, and MD notified of need for MSE.
[2022-02-05 18:00] LABS: BASOPHILS # (AUTO) 0.2 K/uL (0.0-0.2); BASOPHILS % (AUTO) 1.9 % (0.0-2.0); EOSINOPHILS # (AUTO) 0.1 K/uL (0.0-0.4); EOSINOPHILS % (AUTO) 1.3 % (0.0-4.0); HEMATOCRIT 43.4 % (36-54); HEMOGLOBIN 14.8 g/dL (14.0-18.0); LYMPHOCYTES # (AUTO) 1.9 K/uL (1.0-5.5); LYMPHOCYTES % (AUTO) 21.8 % (20.5-51.5); MEAN CORPUSCULAR HEMOGLOBIN 29 pg (27-31); MEAN CORPUSCULAR HGB CONC 34 % (32-36); MEAN CORPUSCULAR VOLUME 85 fL (79.0-98.0); MONOCYTES # (AUTO) 0.5 K/uL (0.0-1.0); MONOCYTES % (AUTO) 6.2 % (1.7-9.3); NEUTROPHILS % (AUTO) 68.8 % (40.0-70.0); PLATELET COUNT (AUTO) 286 K/uL (130-430); RED BLOOD CELL COUNT(AUTO) 5.11 MIL/uL (4.2-6.2); RED CELL DISTRIBUTION WIDTH 13.6 % (9.0-15.0); WHITE BLOOD COUNT (AUTO) 8.7 K/uL (4.8-10.8)
[2022-02-05 18:19] LABS: CALCIUM 8.7 mg/dL (8.4-11.0); CHLORIDE 105 mmol/L (98-107); CREATININE 0.95 mg/dL (0.55-1.30); GLUCOSE 107 mg/dL (70-99); POTASSIUM 3.4 mmol/L (3.5-5.1); UREA NITROGEN, BLOOD 15 mg/dL (8-21)
[2022-02-05 18:24] LABS: ALANINE AMINOTRANSFERASE 23 U/L (12-78); ALBUMIN 4.7 g/dL (3.4-4.8); ASPARTATE AMINOTRANSFERASE 22 U/L (10-37); TOTAL BILIRUBIN 0.5 mg/dL (0.0-1.0)
[2022-02-05 18:29] LABS: GFR AFRICAN AMERICAN 120 mL/min (>90)
[2022-02-05 18:30] LABS: C-REACTIVE PROTEIN QUANT < 0.2 mg/dL (0-0.5)
[2022-02-05 18:43] LABS: ANION GAP 8 (5-15)
[2022-02-05 18:44] LABS: URIC ACID 4.1 mg/dL (2.4-7.0)
[2022-02-05 18:48] LABS: ERYTHROCYTE SEDIMENTATION RATE 1 MM/HR (0-15)
[2022-02-05] MEDS ORDERED: HYDR-3917 PO (19:10)
[2022-02-05] MEDS ORDERED: IBUP-1971 PO (19:10)
[2022-02-05] MEDS ORDERED: HYDROcodone/ACETAMIN 10-325 MG TAB PO ONE (19:15)
[2022-02-05] MEDS ORDERED: KETOROLAC TROMETHAMINE 60 MG/2 ML VIAL IM ONE (19:15)
--- NOTE | 2022-02-05 19:53 | NUR ---
1928 HRS- ER MD DR JOE EVALUATED PATIENT
[2022-02-05 20:37] VITALS: BP_SYST 145
--- NOTE | 2022-02-05 20:37 | NUR ---
Patient given written and verbal discharge instructions and verbalizes understanding. ER MD discussed with patient the results and treatment provided. Patient in stable condition. Rx of Hydrocodone/Acetaminophen 5/325 mg and Ibuprofen 800 mg sent ot pharmacy of choice by ER MD. Patient educated on pain management and to follow up with PMD. Pain Scale 5/10 PS. Opportunity for questions provided and answered.
== END 2022-02-05 20:37 | disposition home or self-care (01) ==
LOC: SED 16:43
DX: M75.122 Complete rotator cuff tear or rupture of left shoulder, not specified as traumatic (principal); M25.512 Pain in left shoulder; K21.9 Gastro-esophageal reflux disease without esophagitis; Z79.899 Other long term (current) drug therapy
CPT/HCPCS: 99284; 80053; 84550; 85025; 85651; 86140; 36415; 73030; 96372; J1885